=== PATIENT | female | born 1940 ===

== ENCOUNTER → 2021-11-08 08:40 | Outpatient (CLI) | payer MEDICARE, SELFPAY ==
[2021-11-08 10:05] LABS: Basophils % 0.7 % (0.1-2.0); Eosinophils # 0.3 K/mm3 (0.0-0.4); Eosinophils % 6.1 % (0.1-12.0); Hematocrit 36.8 % (37.0-47.0); Hemoglobin 12.4 g/dL (12.2-16.2); Lymphocytes % 42.2 % (10-50); Mean Corpuscular HGB Conc 33.7 g/dL (31.8-35.4); Mean Corpuscular Hemoglobin 31.5 pg (27.0-31.2); Mean Corpuscular Volume 93.5 fl (81-99); Mean Platelet Volume 8.7 fl (7.4-10.4); Monocytes # 0.4 K/mm3 (0.1-1.0); Monocytes % 8.6 % (1.7-9.3); Neutrophils % 42.4 % (37.0-80.0); Platelet Count 169 K/mm3 (142-424); Red Blood Count 3.94 M/mm3 (4.20-5.40); Red Cell Distribution Width 13.4 % (11.5-17.5); White Blood Count 4.7 K/mm3 (4.8-10.8)
[2021-11-08 10:10] LABS: INR 0.98 (0.9-1.1); Prothrombin Time 11.1 seconds (10.1-12.5)
[2021-11-08 10:18] LABS: Chloride 107 mmol/L (98-107); Potassium 4.3 mmoL/L (3.5-5.1); Sodium 142 mmol/L (136-145)
[2021-11-08 10:20] LABS: Blood Urea Nitrogen 15 mg/dl (7-17); Estimated Glomerular Filt Rate 80 ml/min (>60); GFR (African American) 97 ML/MIN (>60)
[2021-11-08 10:21] LABS: Alanine Aminotransferase 69 U/L (12-78); Albumin Level 4.1 g/dl (3.5-5.0); Albumin/Globulin Ratio 1.5 (1.1-1.8); Alkaline Phosphatase 93 U/L (38-126); Anion Gap 10.3 mEq/L (5-15); Aspartate Amino Transferase 82 U/L (14-36); Bilirubin,Total 0.8 mg/dl (0.2-1.3); Calcium 9.6 mg/dl (8.4-10.2); Carbon Dioxide 29 mmol/L (22.0-30.0); Globulin 2.7 g/dL (1.3-3.2); Glucose 92 mg/dl (74-100); Iron 87 ug/dL (37-170); Total Protein,Serum 6.8 g/dl (6.3-8.2)
[2021-11-08 10:34] LABS: Total Iron Binding Capacity 313 ug/dL (265-497)
[2021-11-08 10:57] LABS: Ferritin 96.8 ng/ml (11.1-264)
[2021-11-09 12:04] LABS: Hep B Core Ab, Total Negative (Negative); Hepatitis B Surface Antigen Negative (Negative)
[2021-11-09 13:10] LABS: Angiotensin Converting Enzyme <15 U/L (14-82); Ceruloplasmin 23.4 mg/dL (19.0-39.0); Immunoglobulin G, Qn 1127 mg/dL (586-1602); Immunoglobulin M, Qn 68 mg/dL (26-217)
[2021-11-09 14:20] LABS: Actin (Smooth Muscle) Antibody 25 Units (0-19); Liver-Kidney Microsomal Ab 1.3 Units (0.0-20.0); Mitochondrial (M2) Antibody <20.0 Units (0.0-20.0)
[2021-11-10 04:08] LABS: Alpha-1-Antitrypsin 129 mg/dL (101-187)
[2021-11-11 02:08] LABS: ALT (SGPT) P5P 70 IU/L (0-40); AST (SGOT) P5P 69 IU/L (0-40); Alpha 2-Macroglobulins, Qn 249 mg/dL (110-276); Apolipoprotein A-1 132 mg/dL (114-214); Bilirubin, Total 0.5 mg/dL (0.0-1.2); Cholesterol, Total 120 mg/dL (100-199); Fibrosis Score 0.45 (0.00-0.21); Fibrosis Stage F1-F2 (.); GGT 19 IU/L (0-60); Glucose 84 mg/dL (65-99); Haptoglobin 113 mg/dL (41-333); NASH Score 0.75 (0.25); Steatosis Score 0.64 (0.00-0.30); Triglycerides 120 mg/dL (0-149)
[2021-11-13 21:14] LABS: Antinuclear Antibodies (ANA) NEGATIVE
[2021-11-18 18:12] LABS: Immunoglobulin A, Qn 326 mg/dL (64-422)
== END ==
PROVIDERS: PCP Family Medicine; Visit Provider Nurse Practitioner Family
DX: R94.5 Abnormal results of liver function studies (principal); K70.10 Alcoholic hepatitis without ascites
CPT/HCPCS: 36415; 80053; 81256; 82103; 82104; 82164; 82390; 82728; 82784; 83540; 83550; 85025; 85610; 86038; 86255; 86256; 86376; 86704; 87340